=== PATIENT | female | born 1975 | race Caucasian/White ===

== ENCOUNTER → 2024-10-29 11:32 | Outpatient (REF) | payer OTHER, SELFPAY | LOC: RAD 11:32 | PROVIDERS: ATTENDING PHYSICIAN Family Medicine | DX: R20.2 Paresthesia of skin (principal) | CPT/HCPCS: 72040 ==

== ENCOUNTER 2025-01-12 22:18 | Emergency (ER) | payer OTHER, SELFPAY ==
[2025-01-12 22:20] VITALS: BP 154/100
--- NOTE | 2025-01-12 22:45 | ED.GENMED ---
History of Present Illness
General
Chief Complaint: Flank Pain
Source: patient and spouse
Time Seen by Provider: 01/12/25 22:32
History of Present Illness
History of Present Illness:
49 yr old female with c/o Luq/l flank pain yesterday that has gotten progressively worse in the last two hours, assoc with n but no v. No f/c/cp/sob/lower abd pain/urinary sxs. No retention. Pt has a hx of a stone in past on L side.
Past History
Past History
ED Past Medical History: Hypothyroidism and Other (hashimotos)
ED Past Surgical History: and Other (medtronic device for incontinence)
Social History
Tobacco: Non-smoker
Alcohol: None
Drug: None
Personal:
Living: with family
Employment: Employed
Family History
Family History: Hypertension
Phy Exam
Physical Exam
Physical Exam:
aao times three, appears uncomfortable
PERRL
mmm, o/p clear
neck supple
hrt rrr
lung cta
abd osft, nt, nd
extrem no c/c/e
skin warm well perfused
neuro nonfocal, intact
psych appropriate
Course
Orders/Labs/Results
Orders:
Orders
01/12/25 22:44
CT Abd/pel Without Iv Or Oral Urgent
Comment:
Reason For Exam: l flank pain, hx of stone
Complete Blood Count/No Diff Urgent
Comprehensive Metabolic Panel Urgent
0.9% Sodium Chloride 1000 ml [Nss] 1,000 ml IV BOLUS
Ketorolac [Toradol] 15 mg IV NOW STA
Ondansetron Injectable [Zofran] 4 mg IV NOW STA
01/12/25 23:43
Morphine Sulfate 4 mg .ROUTE .STK-MED ONE
Morphine Sulfate 4 mg IV NOW STA
01/12/25 23:54
Urinalysis Reflex To Culture Urgent
Date Specimen was Collected: 01/12/25
Time Specimen was Collected: 23:54
Urine Microscopic Reflex Cult Urgent
Urine Culture Urgent
TJ Source: U
Specimen Description:
Date Specimen was Collected: 01/12/25
Time Specimen was Collected: 23:54
01/13/25 01:29
Oxycodone/Acetaminophen [Percocet 5/325] 1 tablet PO NOW STA
Abnormal Lab Results
01/12/25 01/13/25
23:54 00:32
WBC 13.1 H 10^3/uL
(4.8-10.8)
RBC 4.10 L 10^6/uL
(4.20-5.40)
Hct 36.5 L %
(37.0-47.0)
MPV 10.6 H fL
(7.4-10.4)
Chloride 110 H mmol/L
(98-107)
BUN 22 H mg/dl
(7-17)
Glucose 119 H mg/dl
(70-99)
Ur Occult Blood Reflex 4+ A
(Negative)
Leukocyte Esterase Rfl 1+ A
(Negative)
Urine RBC >100 A /HPF
(0-2)
Urine Albumin (Reflex) 2+ A
(Neg - Trace)
01/13/25 00:32
01/13/25 00:32
Vital Signs
Initial and Last Documented VS:
Initial Vital Signs
Temp Pulse Resp BP Pulse Ox
97.8 F 74 16 154/100 100
01/12/25 22:20 01/12/25 22:20 01/12/25 22:20 01/12/25 22:20 01/12/25 22:20
Last Documented Vital Signs
Temp Pulse Resp BP Pulse Ox
97.8 F 74 16 154/100 100
01/12/25 22:20 01/12/25 22:20 01/12/25 22:20 01/12/25 22:20 01/12/25 22:20
*Critical Care Note
Total Time (30-74mins, 75-104mins- exclusive of procedures): Not Applicable
Update Note
Update Note:
Patient presents to the Emergency Department with ____left flank pain
Number and Complexity of Problems Addressed at the Encounter
� Chronic conditions affecting care:
� Acute Exacerbation and/or Progression of Chronic Illness:
� Differential Diagnosis includes: But not limited to kidney stone, pyelonephritis, bowel obstruction, musculoskeletal pain, etc. etc.
Amount and/or Complexity of Data to be Reviewed and Analyzed
� I performed an independent evaluation of and my interpretation is:
EKG:
CT: Obstructive urolithiasis with 2 stones in the proximal left ureter, more superiorly measuring 5 x 6 mm and more inferiorly measuring 3 x 4 mm on axial imaging and approximately 7 mm in craniocaudal dimension. There is mild
to moderate hydronephrosis. Nonobstructive bilateral calyceal calcifications are also present.
Xrays:
Laboratory Studies: Reviewed by me urine shows RBCs however nitrite negative, 1+ leuk esterase. Creatinine within normal limits.. sl wbc elevation, suspect related to pain
Other:
� Review of other/old records reveals:
� Clinical information was obtained by an independent historian: who is bedside
� Prescriptions/Medications Considered but not given:
� Further testing considered but not performed: Consider giving Flomax however there is a potential conflict with patient's allergy to sulfa therefore we did not do this.
Risk of Complications and/or Morbidity or Mortality of Patient Management
� Social determinants of health affecting care:
� Discussion with other providers (PCP, Hospitalists, Consultants, etc):
� Escalation of care including admission/observation vs risk of discharge considered: Patient got only partial relief of pain with Toradol, when morphine was added, pain went away completely. Patient given a strainer and
specimen cup, I rafaela a diagram explaining her CAT scan findings, plan of care, importance of follow-up, and reasons to return to the ER. Do not clinnically susuepct infection...no dysuria/fever/chills/suspicious ua etc.
ED Attending Note
-
Portions of this chart may have been created with voice recognition software.� Occasional wrong word or��sound alike� substitutions may have occurred due to the inherent limitations of voice recognition software.
Discharge Plan
Departure
Patient Disposition: Home (Routine Discharge)
Date of Disposition: 01/13/25
Time of Disposition: :29
Patient with high blood pressure during this ER visit?: Yes
Condition: Good
Discharge Problem:
Kidney calculus
Instructions: Kidney Stones (DC), How to Strain Your Urine, BLOOD PRESSURE, Narcotic Pain Medication
Prescriptions:
New
oxycodone-acetaminophen [Percocet] 5-325 mg tablet
1 tab PO Q4HPRN PRN (Reason: pain) Qty: 21 0RF
ondansetron HCl 4 mg tablet
4 mg PO Q8H PRN (Reason: nausea and vomiting) Qty: 12 0RF
No Action
liothyronine 5 MICROGRAM tablet
5 mcg PO DAILY
levothyroxine 100 MCG tablet
100 mcg PO Q48H
famotidine 40 mg Tablet
40 mg PO DAILY
levothyroxine 125 mcg Tablet
125 mcg PO Q48H
loratadine 10 mg Tablet
10 mg PO DAILY
ibuprofen 200 mg tablet
400 - 600 mg PO Q6HPRN PRN (Reason: moderate pain) Qty: 1 0RF
acetaminophen [Tylenol Extra Strength] 500 mg tablet
1,000 mg PO Q6HPRN PRN (Reason: mild pain) Qty: 1 0RF
oxycodone 5 mg tablet
5 mg PO Q4HPRN PRN (Reason: breakthrough/severe pain) Qty: 7 0RF
Referrals:
Buddy Montero MD [Active] - Follow up in 5-7 days
Mima Schmidt DO [Family Provider] -
Activity Restrictions/Additional Instructions:
IF YOU DEVELOP PERSISTENT OR NEW PAIN, FEVER, CHILLS, PAIN WITH URINATION, DIFFICULTY URINATING, REPEATED VOMITING, OR OTHER WORRISOME SIGNS, PLEASE RETURN TO THE ER IMMEDIATELY
Interventions
Interventions:
*Risk Screen - Suicide Last Done: 01/12/25 22:20
*Neglect/Abuse Screening Last Done: 01/12/25 22:20
VF-Gxcovj-Scjjafqovg Assessment Last Done: 01/12/25 23:59
ED-Female Genitourinary Assessment Last Done: 01/12/25 23:59
Discharge Date and Time
Print Language: [id number]
[2025-01-12] MEDS: ZOFRAN 4 MG IV (22:54)
[2025-01-12] MEDS: TORADOL 15 MG IV (22:54)
[2025-01-12] MEDS: NSS 1000 IV (23:02)
[2025-01-12] MEDS: MORPHINE SULFATE 4 MG IV (23:46)
[2025-01-13 00:07] LABS: Urine Albumin 2+ (Neg - Trace); Urine Bilirubin Negative (Negative); Urine Character Slightly Cloudy (Clear); Urine Color Yellow; Urine Glucose Negative (Negative); Urine Ketone Negative (Negative); Urine Leukocyte 1+ (Negative); Urine Nitrite Negative (Negative); Urine Occult Blood 4+ (Negative); Urine Specific Gravity 1.025 (<1.030); Urine Urobilinogen Negative (Neg - 1+)
[2025-01-13 00:29] LABS: Urine Squamous Cell 26-30 /LPF (Few)
[2025-01-13 00:32] LABS: Urine Red Blood Cell >100 /HPF (0-2)
[2025-01-13 00:35] LABS: Urine Amorphous Seen
[2025-01-13 01:02] LABS: ALT (SGPT) 11 U/L (0-35); AST (SGOT) 16 U/L (14-36); Albumin 4.2 g/dl (3.5-5.0); Alkaline Phosphatase 76 U/L (38-126); Blood Urea Nitrogen 22 mg/dl (7-17); Calcium 9.1 mg/dl (8.4-10.2); Carbon Dioxide 23 mmol/L (22-30); Chloride 110 mmol/L (98-107); Glucose 119 mg/dl (70-99); Potassium 4.5 mmol/L (3.5-5.1); Sodium 140 mmol/L (135-145); Total Bilirubin 0.5 mg/dl (0.2-1.3); Total Protein 6.5 g/dl (6.3-8.2); eGFR > 60.00
[2025-01-13 01:17] LABS: Hematocrit 36.5 % (37.0-47.0); Hemoglobin 12.3 g/dL (12.0-16.0); Mean Corp Hgb Conc. 33.7 g/dL (33.0-37.0); Mean Platelet Volume 10.6 fL (7.4-10.4); Platelet Count 269 10^3/uL (130-400); Red Cell Dist. Width 12.9 % (11.5-14.5); White Blood Cell Count 13.1 10^3/uL (4.8-10.8)
[2025-01-13] MEDS: PERCOCET 5/325 1 TABLET PO (01:32)
[2025-01-13 01:37] VITALS: BP 111/77
== END 2025-01-13 01:48 | disposition home or self-care (01) ==
LOC: EMR 22:18
PROVIDERS: EMERGENCY PHYSICIAN Emergency Medicine; FAMILY PHYSICIAN Family Medicine
DX: N13.2 Hydronephrosis with renal and ureteral calculous obstruction (principal); E06.3 Autoimmune thyroiditis
CPT/HCPCS: 96374; 96375; 96361; 99284; 74176; 80053; 81003; 81015; 85027; 87086

== ENCOUNTER → 2025-03-07 07:21 | Outpatient (REF) | payer OTHER, SELFPAY | LOC: HWRAD 07:21 | PROVIDERS: ATTENDING PHYSICIAN Specialist; FAMILY PHYSICIAN Family Medicine | DX: N20.0 Calculus of kidney (principal) | CPT/HCPCS: 74018; 76775 ==

== ENCOUNTER → 2025-04-16 07:03 | Outpatient (REF) | payer OTHER, SELFPAY | LOC: HWWDC 07:03 | PROVIDERS: ATTENDING PHYSICIAN Family Medicine | DX: Z12.31 Encounter for screening mammogram for malignant neoplasm of breast (principal) | CPT/HCPCS: 77063; 77067 ==